=== PATIENT | male | born 1985 | race Caucasian/White ===

== ENCOUNTER → 2019-06-24 | Outpatient (CLI) | payer OTHER ==
--- NOTE | 2019-06-24 15:31 | KCIC ---
EXAM: Lumbar spine, 5 views. HISTORY: Pain. COMPARISON: None. FINDINGS: 5 views of the lumbar spine are obtained. There is minimal lumbar levocurvature centered at L3. There is minimal retrolisthesis of L5 on S1. The vertebral bodies are normal in height and the disc spaces are preserved. IMPRESSION: 1. No acute osseous finding. 2. Minimal lumbar levocurvature and minimal retrolisthesis of L5 on S1. Electronically signed by: Sonia Padgett MD (06/24/2019 3:28 PM) [place] [id number]
== END | disposition home or self-care (01) ==
LOC: KCIC 14:35
PROVIDERS: ATTEND Family Medicine
DX: M53.87 Other specified dorsopathies, lumbosacral region (principal); M54.16 Radiculopathy, lumbar region
CPT/HCPCS: 72110

== ENCOUNTER → 2019-08-26 | Outpatient (CLI) | payer OTHER ==
--- NOTE | 2019-08-26 12:25 | RAD ---
EXAM: Lumbar spine MRI without contrast. HISTORY: Lumbar radiculopathy. TECHNIQUE: Multiplanar, multisequence magnetic resonance imaging of the lumbar spine was performed without contrast. COMPARISON: Radiographs dated 06/24/2019. FINDINGS: There is mild lumbar levoscoliosis centered at L3. There is no listhesis. The vertebral bodies are normal in height. There is disc desiccation at L5-S1, and to a lesser extent, L3-L4. There is mild disc space narrowing at L5-S1. The conus-related L1. There is no suspicious osseous lesion. There is no fracture. At L1-L2 and L2-L3, there is no stenosis. At L3-L4, there is a shallow broad-based posterior central disc protrusion superimposed on a disc bulge. There is minimal left foraminal stenosis. At L4-L5, there is a shallow posterior central disc protrusion. There is mild bilateral facet arthropathy. There is no stenosis. At L5-S1, there is a broad-based shallow posterior disc protrusion and alar tear with 2 mm inferior extrusion superimposed on a disc bulge. There is mild left foraminal stenosis. IMPRESSION: 1. Minimal to mild degenerative change involving the lower lumbar spine, described in detail above. This is associated with minimal left foraminal stenosis at L3-L4 and mild left foraminal stenosis at L5-S1. 2. Mild lumbar levoscoliosis. Electronically signed by: Sonia Padgett MD (08/26/2019 12:21 PM) [facility]
== END | disposition home or self-care (01) ==
LOC: MRI 10:45
PROVIDERS: ATTEND Family Medicine
DX: M47.26 Other spondylosis with radiculopathy, lumbar region (principal); M48.061 Spinal stenosis, lumbar region without neurogenic claudication; M48.07 Spinal stenosis, lumbosacral region
CPT/HCPCS: 72148

== ENCOUNTER → 2019-09-22 | Outpatient (CLI) | payer OTHER ==
[~2019-09-22] MED LIST: LIDO700A21 TP
--- NOTE | 2019-09-22 13:57 | PAIN ---
DATE OF SERVICE: 09/22/2019 INITIAL CONSULTATION FOR PAIN CLINIC CHIEF COMPLAINT: Low back and left lower extremity pain. HISTORY OF PRESENT ILLNESS: This is a 34-year-old male who presents with history of pain for about a year in the low back, left lower extremity, left groin with walking, standing, and change in positions. The patient reports it was not a result of any specific injury or accident he is aware of, but it has been getting worse over time, described as throbbing, intermittent in intensity, but changes during the day, worse with activity, changes with walking, standing, tingling with numbness and radiation into the left lower extremity, mostly in the posterior gluteus and thigh, but also in the left groin greater than the right. The patient reports it is aching and stabbing, better with sitting or lying down, but awakens him from sleep at least once or twice at night. The patient reports it does affect his bowel or bladder control, but no incontinence, but is worse with having bowel movement. The patient reports it does affect his ability to walk as well but he is not using any assistive devices to ambulate. The patient is doing physical therapy. He has done 3 weeks of therapy so far and reports he has had a significant decrease in pain where he is walking up to a mile without significant pain where initially it was only about 200-300 yards. The patient reports no loss of motor function. The pain again radiating to the left posterior gluteus, posterior thighs, it was described into the groin on the left as well. The patient describes his disability rating from 0-10, 10 being the worst, as a 5 with family home responsibilities, recreation, social activity and occupation, 0 with self-care and 2 with life support activities. The patient did have MRI scan of the lumbar spine, showing minimal to mild degenerative changes along the lower lumbar spine associated with minimal left foraminal stenosis at L3-L4 and mild left foraminal stenosis at L5-S1 with broad-based shallow posterior disk protrusion at L5-S1 with an alar tear with 2 mm inferior extrusion superimposed on disk bulge with left mild foraminal stenosis as well. The patient reports no loss of motor function, but significant fatigability in the left leg, but again significantly improved with physical therapy at this point. The patient has tried lidocaine patches on his back as well without significant decrease in pain as well as [id number]-gyc-jehjyps ibuprofen and Tylenol again with moderate decrease in pain. PAST MEDICAL HISTORY: Significant for no previous surgeries. History of asthma as a child, but no symptoms recently, but otherwise the patient has been in fairly good health. CURRENT MEDICATIONS: Include only [id number] anti-inflammatories. SOCIAL HISTORY: The patient does not drink alcohol, does not smoke, does not use any illegal, illicit or recreational drugs. Single, lives locally in [place], [place]. FAMILY HISTORY: Significant for low back problems. Otherwise, no known history. ALLERGIES: The patient has no known drug allergies. REVIEW OF SYSTEMS: The patient's review of systems is positive for those items mentioned in history of present illness. All systems reviewed and otherwise negative. It is complete, full and well documented on the patient's chart. PHYSICAL EXAMINATION: VITAL SIGNS: The patient's blood pressure is 125/74, pulse 88, respirations 14, temperature 97.8 degrees Fahrenheit, height is 5 feet 10 inches, weight is 155 pounds. GENERAL: The patient is awake, alert, oriented, appropriate, very pleasant demeanor. HEENT: Shows normocephalic, atraumatic. Extraocular movements are intact and symmetrical. Oral cavity: Mucous membranes moist and pink. Dentition is intact. NECK: Shows anterior throat supple without palpable lymphadenopathy noted. Swallow reflex symmetrical. CHEST: Shows normal on inspection. Breath sounds clear to auscultation bilaterally. HEART: Shows S1, S2 clear. No murmurs auscultated. ABDOMEN: Soft, nontender, nondistended. No palpable organomegaly is noted. No rebound or guarding demonstrated. BACK: Shows spine grossly in the midline, normal appearing thoracic kyphosis and lumbar lordotic curvature. Lumbar paraspinous muscle shows symmetrical on inspection, with palpation shows some moderate tenderness diffusely in the upper, middle and lower distribution of paraspinous muscles bilaterally, but are symmetrical without evidence of atrophy, hypertrophy, no asymmetry or trigger points demonstrated. BACK: The patient's back shows good rotational motion both laterally greater than 10 degrees right and left as well as extension greater than 10 degrees, forward flexion 45 degrees without significant pain reported. EXTREMITIES: The patient's lower extremities show deep tendon reflexes at 2+ in the patellar, 1+ tendo-calcaneus tendons. Motor exam is strong with 5/5 dorsiflexion, extension, quadriceps and hamstring flexion and symmetrical. Peripheral pulses are 1+ posterior tibia. No peripheral edema is noted. Motor exam is strong with approximately 4 on a scale of 5 left and 5/5 right with dorsiflexion, extension, quadriceps and hamstring flexion. Lower extremities are warm and dry to touch, equal in color and appearance. Straight leg raise noted to be negative for reproduction of radicular symptoms bilaterally. Gaenslen's and Andrew's maneuvers are negative bilaterally as well. The patient's skin shows warm and dry, good turgor. No edema. No sores, rashes or bruising throughout. IMPRESSION: This is a 34-year-old male with; 1. About 1-year history of low back and left lower extremity pain as well as left groin pain. 2. MRI scan of lumbar spine as noted. 3. History of asthma. PLAN: Options were discussed with the patient including conservative medical management, continued physical therapies and interventional techniques. He would like to continue with conservative measures at this time. We will continue with physical therapy at this time. We will preauthorize the patient; however, for a lumbar epidural steroid injection as he would like to have this available if the therapy is not improving any further. As he does have a clinical L5-S1 radiculopathy on the left, we will plan on lumbar epidural steroid injection pending completion of physical therapy at the L5-S1 level or translaminar approach if necessary. The patient will follow up after physical therapy completed. We will plan on lumbar epidural steroid injection at that time. MIREYA LEE MD DR: KAYLYN/jay JOB#: [id number] / [id number] ANGELIKA Ibarra MD
== END | disposition home or self-care (01) ==
LOC: PNCL 09:18
PROVIDERS: ATTEND Anesthesiology
DX: M79.605 Pain in left leg (principal); M54.5 Low back pain; J45.909 Unspecified asthma, uncomplicated
CPT/HCPCS: G0463

== ENCOUNTER → 2019-11-30 | Outpatient (CLI) | payer OTHER ==
--- NOTE | 2019-12-01 01:10 | PAIN ---
DATE OF SERVICE: 11/30/2019 PROGRESS NOTE FOR PAIN CLINIC DIAGNOSES: Lumbar radiculopathy with lumbar degenerative disk disease and lumbar spinal stenosis. HISTORY OF PRESENT ILLNESS: The patient is a 34-year-old male who returns for followup status post initial evaluation and physical therapy. He does note now for the past 6 weeks some improvement, but only about 10%-20%. The patient reports still significant pain in the low back radiating to the left groin, significantly in the posterior gluteus, posterior thigh, into the posterior aspect of the calf as well, but mostly in the left groin as well as across the low back. The patient reports it is aching and tight, becoming more constant, worse with walking, standing, changing positions. The patient rates it as 7 on a scale of 10 at its worst in the past week, 6 on average, 4 at its least. He is still doing some exercises from the physical therapy. He has just recently completed, but still awaken him from sleep about every 6 hours. The patient can usually reposition or get out of bed, change positions to get back to sleep without much difficulty. The patient reports no new motor or sensory deficits, no new bowel or bladder incontinence. PHYSICAL EXAMINATION: VITAL SIGNS: The patient's blood pressure 123/87, pulse 80, respirations 18, temperature 97.9 degrees Fahrenheit, height is 5 feet 10 inches, weight is 162 pounds. GENERAL: The patient is awake, alert, oriented, appropriate, very pleasant demeanor. HEENT: Shows normocephalic, atraumatic. Extraocular movements are intact and symmetrical. Oral cavity shows mucous membranes moist and pink. Dentition is intact. NECK: Shows anterior throat supple. CHEST: Shows normal on inspection. Breath sounds are clear bilaterally. HEART: Shows S1, S2 clear. ABDOMEN: Soft, nontender, nondistended. BACK: Shows spine grossly in the midline. Normal appearing thoracic kyphosis and some minor flattening of lumbar lordotic curvature. Lumbar paraspinous muscle shows symmetrical on inspection, with palpation shows some mild tenderness, but only diffusely in the low lumbar distribution, slightly more on the left than the right, but symmetrical without evidence of atrophy, hypertrophy, no trigger points, no radiation of pain, no tenderness over the sacrum or sacroiliac regions bilaterally. EXTREMITIES: The patient's lower extremities show deep tendon reflexes at 2+ in the patellar, 1+ tendo-calcaneus tendons. Motor exam is approximately 4 on a scale of 5 with left dorsiflexion, extension, 5/5 on the right. Peripheral pulses are 1+ posterior tibia. No peripheral edema is noted. The patient's groin shows no evidence of herniation right or left inguinal canal. No palpable masses with bearing down bilaterally. Options were discussed with the patient. The patient's old chart was reviewed as his current medication regimen updated. Current review of systems updated today as well. We will preauthorize the patient for a lumbar epidural steroid injection as he had a clinical L5-S1 radiculopathy on the left side, again slightly better after physical therapy, but now the pain is returning fairly significantly in a radicular fashion in the left leg at the L5-S1 dermatomal distribution. I will plan on translaminar approach at L5-S1 lumbar epidural steroid injection on patient's return. MIREYA LEE MD DR: KAYLYN/jay JOB#: [id number] / [id number]
== END | disposition home or self-care (01) ==
LOC: PNCL 13:32
PROVIDERS: ATTEND Anesthesiology
DX: M51.16 Intervertebral disc disorders with radiculopathy, lumbar region (principal); M48.061 Spinal stenosis, lumbar region without neurogenic claudication
CPT/HCPCS: G0463

== ENCOUNTER → 2019-12-16 | Outpatient (CLI) | payer OTHER ==
[~2019-12-16] MED LIST changes: +IOHEXOL 180 MG/ML 10 ML VIAL. ONE; +methylPREDNISolone ACETATE 40 MG/ML VIAL. ONE; +methylPREDNISolone ACETATE 80 MG/ML VIAL. ONE
--- NOTE | 2019-12-17 02:32 | PAIN ---
DATE OF SERVICE: 12/16/2019 PROGRESS NOTE FOR PAIN CLINIC DIAGNOSES: Lumbar radiculopathy with lumbar degenerative disc disease, lumbar spinal stenosis. HISTORY OF PRESENT ILLNESS: The patient is a 34-year-old male who returns for followup status post initial evaluation and physical therapy, returns today for lumbar epidural steroid injection. The patient has received preauthorization with insurance provider and would like to proceed. The patient reports there is pain still in the low back, left lower extremity, into the left more than the right groin and perineal area. The patient reports it as a 6 on a scale of 10 at its worst over the past week, 5 on average, 4 at its least and is a 5 today. The patient reports it is a dull, constant, aching into the left gluteus and left posterior thigh as well. The patient reports it awakens him from sleep at every 4-5 hours. The patient reports no new motor or sensory deficits; however, no new bowel or bladder incontinence or other complaints. PHYSICAL EXAMINATION: VITAL SIGNS: The patient's blood pressure is 120/86, pulse is 81, respirations 18, temperature 97.8 degrees Fahrenheit, height is 5 feet 10 inches, weight is 166 pounds. GENERAL: The patient is awake, alert, oriented, appropriate, very pleasant demeanor. HEENT: Shows normocephalic and atraumatic. Extraocular movements are intact and symmetrical. Oral cavity shows mucous membranes moist and pink. Dentition is intact. NECK: Shows anterior throat is supple without palpable lymphadenopathy noted. Swallow reflex symmetrical. CHEST: Shows normal on inspection. Breath sounds are clear to auscultation bilaterally. HEART: Shows S1 and S2 clear. ABDOMEN: Soft, nontender, and nondistended. BACK: Shows spine grossly in the midline. Normal-appearing thoracic kyphotic curvature and lumbar lordotic curvature. Lumbar paraspinous muscle shows symmetrical on inspection. With palpation, some moderate tenderness diffusely bilaterally and diffusely without significant radiation. The patient has good rotational motion of lumbar spine laterally as well as extension and flexion without significant increasing pain. EXTREMITIES: The patient's lower extremities show deep tendon reflexes 2+ in the patellar, 1+ in tendo-calcaneus tendons. Motor exam is approximately 4 on a scale of 5 with left dorsiflexion, extension, quadriceps and hamstring flexion and 5/5 on the right. Peripheral pulses are 1+ posterior tibial. No peripheral edema bilaterally. Options were discussed with the patient. The patient's old chart was reviewed and his current medication regimen updated. Current review of systems updated today as well. We will proceed with a lumbar epidural steroid injection today with fluoroscopic guidance. Risks were again discussed including, but not limited to bleeding, infection, possibility of epidural hematoma, subsequent neurological compromise, dural puncture, headaches, spinal cord and/or nerve damage, side effects of steroid medication and poor results regarding pain control. The patient understands and wished to proceed. The patient will return to the clinic in approximately 2 weeks for followup. He was counseled on return appointment, activity level, and side effects to be aware of. DIAGNOSIS: Lumbar radiculopathy with lumbar degenerative disc disease and lumbar spinal stenosis. PROCEDURE: Lumbar epidural steroid injection, translaminar approach, L5-S1 level using a C-arm fluoroscopic guidance under sterile prep and drape using local anesthetic. MEDICATION INJECTED: A total of 120 mg of Depo-Medrol plus 10 mL of preservative-free normal saline and 2 mL of contrast. CONDITION AT DISCHARGE: Stable. The patient tolerated the procedure well, had no complications. MIREYA LEE MD DR: KAYLYN/jay JOB#: [id number] / [id number]
== END | disposition home or self-care (01) ==
LOC: PNCL 13:33
PROVIDERS: ATTEND Anesthesiology
DX: M51.16 Intervertebral disc disorders with radiculopathy, lumbar region (principal); M48.061 Spinal stenosis, lumbar region without neurogenic claudication; Z98.890 Other specified postprocedural states
CPT/HCPCS: 62323; J1030; J1040; Q9965

== ENCOUNTER → 2020-01-26 | Outpatient (CLI) | payer OTHER ==
[~2020-01-26] MED LIST changes: -IOHEXOL 180 MG/ML 10 ML VIAL. ONE; +IOHEXOL 240 MG/ML 50ML VIAL. ONE; +tumeric PO
--- NOTE | 2020-01-27 02:32 | PAIN ---
DATE OF SERVICE: 01/26/2020 PROGRESS NOTE FOR PAIN CLINIC DIAGNOSES: Lumbar radiculopathy with lumbar degenerative disk disease and lumbar spinal stenosis. HISTORY OF PRESENT ILLNESS: The patient is a 34-year-old male who returns for followup status post lumbar epidural steroid injection x 1. The patient reports only minimal decrease in pain after the first injection, still some pain in the low back, left lower extremity as it was previously in the low back, posterior gluteus, posterior thigh and posterior calf. The patient reports it is radiating, becoming more constant, worse with activity, standing and walking. The patient reports no significant changes after the injection, but no side effects either. The patient reports it is awaken him from sleep every 4-6 hours, activity has been about the same. He has been favoring his left lower extremity fairly significantly. The patient reports the pain is a 6 on a scale of 10 at its worst over the past week, 6 on average, 5 at its least and is a 6 today. The patient reports it is radiating, becoming more persistent. PHYSICAL EXAMINATION: VITAL SIGNS: The patient's blood pressure is 116/71, pulse 73, respirations 18, temperature 97.8 degrees Fahrenheit, height is 5 feet 10 inches, weight is 156 pounds. GENERAL: The patient is awake, alert, oriented, appropriate, very pleasant demeanor. HEENT: Head shows normocephalic, atraumatic. The patient wears eyeglasses. Extraocular movements are intact and symmetrical. Oral cavity: Mucous membranes moist and pink. Dentition is intact. NECK: Shows anterior throat supple without palpable lymphadenopathy noted. Swallow reflex symmetrical. CHEST: Shows normal on inspection. Breath sounds are clear to auscultation bilaterally. HEART: Shows S1, S2 clear. No murmurs auscultated. ABDOMEN: Soft, nontender, nondistended. No palpable organomegaly is noted. No rebound or guarding demonstrated. BACK: Shows spine grossly in the midline, normal appearing thoracic kyphosis and lumbar lordotic curvature. Lumbar paraspinous muscle shows symmetrical on inspection, on palpation shows some moderate tenderness diffusely bilaterally and diffusely without significant radiation. EXTREMITIES: The patient's lower extremities show deep tendon reflexes at 2+ patellar, 1+ tendo-calcaneus tendons. Motor exam is strong with 5/5 dorsiflexion, extension, quadriceps and hamstring flexion symmetrical. Peripheral pulses are 1+ posterior tibia. No peripheral edema is noted bilaterally. Options were discussed with the patient. The patient's old chart was reviewed as his current medication regimen updated. Current review of systems updated today as well. We will proceed with a second in a series of lumbar epidural steroid injection today with fluoroscopic guidance. Risks were again discussed including, but not limited to bleeding, infection, possibility of epidural hematoma, subsequent neurological compromise, dural puncture, headaches, spinal cord and/or nerve damage, side effects of steroid medication and poor results regarding pain control. The patient understands and wishes to proceed. The patient will return to clinic in approximately 2 weeks for followup. He was counseled on return appointment, activity level and side effects to be aware of. DIAGNOSES: Lumbar radiculopathy with lumbar degenerative disk disease, lumbar spinal stenosis. PROCEDURE: Lumbar epidural steroid injection, translaminar approach at L5-S1 level using C-arm fluoroscopic guidance under sterile prep and drape using local anesthetic. MEDICATION INJECTED: A total of 120 mg Depo-Medrol plus 10 mL of preservative-free normal saline and 2 mL of contrast. CONDITION AT DISCHARGE: Stable. The patient tolerated procedure well, had no complications. MIREYA LEE MD DR: KAYLYN/jay JOB#: [id number] / [id number]
== END ==
LOC: PNCL 14:03
PROVIDERS: ATTEND Anesthesiology
DX: M51.16 Intervertebral disc disorders with radiculopathy, lumbar region (principal); M48.061 Spinal stenosis, lumbar region without neurogenic claudication
CPT/HCPCS: 62323; J1030; J1040; Q9966

== ENCOUNTER → 2021-06-12 | Outpatient (CLI) | payer OTHER ==
[~2021-06-12] MED LIST changes: -IOHEXOL 240 MG/ML 50ML VIAL. ONE; -methylPREDNISolone ACETATE 40 MG/ML VIAL. ONE; -methylPREDNISolone ACETATE 80 MG/ML VIAL. ONE
--- NOTE | 2021-06-13 08:41 | KCIC ---
EXAMINATION: MRI PELVIS WO INDICATIONS: Pelvic and perineal pain. TECHNIQUE: Multiplanar multisequence MRI of the pelvis was obtained without contrast. COMPARISON: None. FINDINGS: BONES AND CARTILAGE: No acute fracture. Alignment is normal. Articular cartilage is grossly intact. P ubic symphysis and sacroiliac joints are normal. LABRUM: The labrum are not well evaluated on large field of view images but there is a suspected righ t anterior superior labral tear seen on coronal series (image 27, series 3). MUSCLES, TENDONS, AND BURSAE: Muscles are normal in signal and bulk. Gluteus medius and minimus, ilio psoas, adductor, hamstrings, rectus femoris tendons are intact. No bursitis. The ischiofemoral spaces are normal. OTHER: No joint effusion or synovitis. There are small central disc protrusions at L4-5 and L5-S1, in completely evaluated. Visualized intrapelvic contents are unremarkable. No inguinal hernias. IMPRESSION: 1. No acute osseous abnormality. 2. Probable right anterior superior labral tear, although the labrum are not well evaluated on large field of view exam. 3. Small central disc protrusions at L4-L5 and L5-S1, incompletely evaluated. Electronically signed by: Aide Vazquez MD (06/13/2021 8:38 AM) [id number]
== END ==
LOC: KCIC MRI 14:26
PROVIDERS: ATTEND Family Medicine
DX: R10.2 Pelvic and perineal pain (principal); G89.29 Other chronic pain; M51.27 Other intervertebral disc displacement, lumbosacral region
CPT/HCPCS: 72195